=== PATIENT | male | born 2000 | race Caucasian/White ===

== ENCOUNTER 2024-09-01 14:10 | Emergency (ER) | payer OTHER, SELFPAY ==
--- NOTE | ~2024-09-01 | CT_ITS ---
CT of the Abdomen and Pelvis: Indication: Diarrhea Technique: 2.5 mm axial scans were obtained through the abdomen and pelvis following intravenous adm inistration of 100 cc of Omnipaque 350. Dose reduction technique was used on this scan by utilizing a utomated exposure control and iterative reconstruction technique. The dose-length product (DLP) was 4 02.77 mGy-cm. Findings: Scans through the lung bases are unremarkable. The liver, spleen, pancreas, gallbladder, adrenals and kidneys are within normal limits. No evidence of aortic aneurysm. No lymphadenopathy. Questionable mild wall thickening of the distal sigmoid colon/rectum. No bowel obstruction or. No abs cess or free air. Images through the pelvis were performed. Urinary bladder unremarkable. No pelvic mass seen. No ascit es. Impression: Possible colitis of the distal sigmoid colon and rectum. Correlate clinically. Reviewed, dictated and finalized at [facility]. Impression: Possible colitis of the distal sigmoid colon and rectum. Correlate clinically.
[2024-09-01 15:09] VITALS: BP 128/85; PULSE 75; RESP 22; TEMP 36.4; O2SAT 98
[2024-09-01 17:03] VITALS: BP 141/88; PULSE 64; RESP 18; O2SAT 100
[2024-09-01 17:15] LABS: Hematocrit 46.6 % (42.0-52.0); Hemoglobin 15.3 g/dL (14.0-18.0); Immature Granulocyte Percent A 0.3 % (0-0.5); Lymphocytes Absolute Auto 2.41 K/mm3 (0.9-3.2); Mean Corpuscular HGB Conc 32.8 g/dl (32-36); Mean Corpuscular Hemoglobin 27.9 pg (26-34); Mean Corpuscular Volume 84.9 fl (80-100); Nucleated Red Blood Cells Absolute Auto 0.000 K/mm3 (0.0-0.012); Nucleated Red Blood Cells Perc 0.0 % (0.0-0.2); Platelet Count Result 241 k/mm3 (150-375); Red Blood Count 5.49 M/mm3 (4.6-6.20); White Blood Count 7.4 K/mm3 (4.5-10.0)
[2024-09-01 17:25] LABS: INR 0.9; Partial Thromboplastin Time 29.5 Seconds (22.3-36.8); Prothrombin Time 12.5 Seconds (11.1-14.7)
[2024-09-01 17:29] LABS: Alanine Aminotransferase 36 U/L (6-50); Albumin Level 4.5 g/dL (3.5-5.1); Alkaline Phosphatase 72 U/L (38-126); Anion Gap 7 mmol/L (4-12); Aspartate Amino Transferase 36 U/L (17-59); Bilirubin,Total 0.6 mg/dL (0.2-1.3); Blood Urea Nitrogen 18 mg/dL (9-20); Calcium 9.8 mg/dL (8.4-10.2); Carbon Dioxide 28 mmol/L (22-30); Chloride 104 mmol/L (98-107); Estimated CRCL calculation 105 ml/min; Estimated Glomerular Filt Rate > 60; Glucose 86 mg/dL (65-110); Potassium 4.1 mmol/L (3.4-5.0); Sodium 139 mmol/L (137-145); Total Protein 7.7 g/dL (6.3-8.2)
[2024-09-01] MEDS: SODIUM CHLORIDE 0.9% IV 1,000 ML 999 ML IV CONT ×2 (17:39→18:40)
--- OUTSIDE RECORDS SUMMARY | 2024-09-01 17:39 | XMS_ITS | Clinical Summary ---
Author Organization [facility] Address [address] [place] [address] Care Team Providers Care Communication Consultant Name Role Phone Duke Deluca MD Primary Care Provider + Source Comments [facility],non-owned Affiliates and Associated Physician Practices is amultiple site organization consisting of ambulatory clinics and hospital sitesin [place], [place], [place] and [place]. This disclosure is being madepursuant to the Care Everywhere program and may not contain all information available regarding this patient. Last updated 17.[facility] Allergies No known active allergies Medications * Be aware that medications may not be up to date on this document. Alwaysverify current medications with the patient. omeprazole (PRILOSEC) 20 MG capsule TAKE ONE CAPSULE DAILY BEFORE BREAKFAST 0 8 Active ondansetron (ZOFRAN) 4 MG tablet TAKE 1 TABLET EVERY 8 HOURS 0 8 Active omeprazole (PRILOSEC) 20 MG capsule Take 1 capsule by mouth 2 times daily,before breakfast and supper 60 capsule 3 8 Active Family History Medical History Relation Name Comments Other - Gastrointestinal Brother h/u ulcer requiring hospitalization Celiac Disease Neg Hx Crohn's Disease Neg Hx Ulcerative Colitis Neg Hx Relation Name Status Comments Brother Social History Tobacco Use Types Packs/Day Years Used Date Smoking Tobacco: Every Day Smokeless Tobacco: Never Comments:vape Sex and Gender Information Value Date Recorded Sex Assigned at Not on file Legal Sex Male 6:32 PM CDT Gender Identity Not on file Sexual Orientation Not on file Last Filed Vital Signs Vital Sign Reading Time Taken Comments Blood Pressure 116/70 09/16/2017 1:12 PM CDT Pulse - - Temperature - - Respiratory Rate - - Oxygen Saturation - - Inhaled Oxygen Concentration - - Weight 73.4 kg (161 lb 13.1 oz) 09/16/2017 1:12 PM CDT Height 177.4 cm (5' 9.84) 09/16/2017 1:12 PM CD T Body Mass Index 23.32 09/16/2017 1:12 PM CDT Plan of Treatment Health Maintenance Due Date Last Done Comments HIV SCREENING 09/04/2015 HPV VACCINE (1 - Male 3-dose series) 09/04/2015 MENINGOCOCCAL (Group B) VACC INE SHARED DECISION-MAKING (1 of 2 - Standard) 2016 HEPATITIS C SCREENING 08/30/2018 DTAP/TDAP/TD VACCINES (1 - Tdap) 09/04/2019 HEPATITIS B VACCINE (1 of 3 - 19+ 3-dose series) 09/04/2019 COVID-19 VACCINE (1 - 2023-2 5 season) 2023 DEPRESSION SCREENING 02/15/2024 INFLUENZA VACCINE (#1) 2024 ZOSTER VACCINE (1 of 2) 2050 HIB VACCINE Aged Out No longer eligi ble based on patient's age to complete this topic MENINGOCOCCAL GROUPS A/C/Y/W VACCINE Aged Out No longer eligible b ased on patient's age to complete this topic PNEUMOCOCCAL VACCINE Aged Out No long er eligible based on patient's age to complete this topic Insurance [employer] Care Teams Communication Consultant Relationship Specialty Start Date End Date Duke Deluca MD PCP - General Internal Medicine 07/29/17
--- OUTSIDE RECORDS SUMMARY | 2024-09-01 17:39 | XMS_ITS | Clinical Summary ---
Author Organization [facility] Address [address] [place] [address] Care Team Providers Care Assistant Field Hockey Coach Name Role Phone Roula Flowers MD Primary Care Provider [phone]- [phone] Allergies No known active allergies Medications fexofenadine (IMAN) 180 MG tabletIndicatio ns:Seasonal allergies TAKE 1 TABLET BY MOUTH EVERY DAY 90 tablet 3 05/17/19 25 Active famotidine (PEPCID) 20 MG tabletIndicatio ns:Irritable bowel syndrome, unspecified type,Abdominal pain, unspecified abdominal location Take 1 tablet (20 mg total) by mouth 2 (two) times daily. 60 tablet 1 08/31/19 25 Active Simethicone 80 MG TabIndications: Irritable bowel syndrome, unspecified type,Abdominal pain, unspecified abdominal location Take 80 mg by mouth 2 (two) times daily for 30 days. For bloated abd feeling 60 tablet 1 08/31/19 25 025 Active metroNIDAZOLE (FLAGYL) 500 MG tabletIndicatio ns:Irritable bowel syndrome, unspecified type,Abdominal pain, unspecified abdominal location Take 1 tablet (500 mg total) by mouth 3 (three) times daily for 7 days. 21 tablet 08/31/19 25 025 Active nortriptyline (PAMELOR) 25 MG capsuleIndicati ons:Abdominal cramps,Irritabl e bowel syndrome, unspecified type Take 1 capsule (25 mg total) by mouth nightly at bedtime. 30 capsule 07/17/20 25 Active omeprazole (PRILOSEC) 40 MG capsuleIndicati ons:Gastroesoph ageal reflux disease, unspecified whether esophagitis present TAKE 1 CAPSULE BY MOUTH EVERY DAY NEEDED FOR HEARTBURN 30 capsule 1 05/17/19 25 025 Discontinued dicyclomine (BENTYL) 20 MG tabletIndicatio ns:Abdominal cramps Take 1 tablet (20 mg total) by mouth 2 (two) times daily as needed. 60 tablet 07/18/19 25 025 nortriptyline (PAMELOR) 10 MG capsuleIndicati ons:Abdominal cramps Take 1 capsule (10 mg total) by mouth nightly at bedtime. 30 capsule 1 07/18/19 25 025 Discontinued(Do se adjustment) Active Problems Problem Noted Date Diagnosed Date Abdominal cramps 07/17/2024 Assessment & Plan (08/30/2024 8:29 AM CDT): Patient denies having any cramps at this time and does not take any nortriptyline lately Patient was given an option higher dose of nortriptyline might help, sent Orders: nortriptyline (PAMELOR) 25 MG capsule; Take 1 capsule (25 mg total) by mouth nightly at bedtime. Assessment & Plan (07/17/2024 4:14 PM CDT): Lot better than before but needs to use dicyclomine BID Added probiotics in diet Suspected the IBS symptoms-trial of nortriptyline to be taken at bedtime Hydrate well Orders: dicyclomine (BENTYL) 20 MG tablet; Take 1 tablet (20 mg total) by mouth 2 (two) times daily as needed. nortriptyline (PAMELOR) 10 MG capsule; Take 1 capsule (10 mg total) by mouth nightly at bedtime. Gastroesophageal reflux disease without esophagi tis 04/18/2024 Seasonal allergies 09/20/2016 Resolved Problems Problem Noted Date Diagnosed Date Resolved Date Labral tear of shoulder, right, sequela 11/29/2017 04/18/2024 Asthma ([facility]) 09/20/2016 04/18/2024 Wears contact lenses 025 Encounters Date Type Department Care Team Description 08/30/2024 7:40 AM CDT Office Visit [facility] Family & Internal [address] [phone] Roula Flowers MD Stomach Pains (Follow up GI issues not any better) 08/30/2024 Travel 07/17/2024 3:40 PM CDT Office Visit [facility] Family & Internal [facility] [address] [place] [phone] Roula Flowers MD Pain (2 week follow up abdominal cramps/ pain) 07/17/2024 Travel 07/03/2024 Results Follow-Up [facility] [address] [place] [address] Roula Flowers MD OCCULT BLOOD, FECES, HELICOBACTER PYLORI, STOOL, EIA 07/02/2024 3:58 PM CDT - 07/02/2024 11:59 PM CDT Hospital Encounter [facility] [address] [place] [phone] Roula Flowers MD Discharge Disposition: Home or Self Care (Routine Discharge) 07/02/2024 Orders Only [facility] [address] [place] [address] Roula Flowers MD 06/29/2024 Results Follow-Up [facility] Internal [address] [phone] Roula Flowers MD CBC W/DIFF AUTOMATED, COMPREHENSIVE METABOLIC PANEL 06/28/2024 4:33 PM CDT - 06/28/2024 11:59 PM CDT Hospital Encounter [facility] [address] [place] [address] Roula Flowers MD Discharge Disposition: Home or Self Care (Routine Discharge) 06/28/2024 2:50 PM CDT Laboratory Only [facility] Family & Internal [address] [address] Clau Longo, FERMENTER-BC 06/28/2024 1:40 PM CDT Office Visit [facility] Family & Internal Medicine [facility] [address] [place] [address] Roula Flowers MD Pain (Acute stomach pain and irregular BM after ABT for 2 months) 06/28/2024 Travel from Last 3 Months Immunizations Immunization Administration Dates Next Due Dtap (Generic) 09/08/2005, 2,03/10/2001,01/10/2001 ,2000 Hepatitis B (Generic: Adult) 09/08/2001,03/10/19 02,2000 Hib Vaccine, Prp-Omp 12/07/2001,03/10/2001,01/10,2000 MMR (Generic) 09/08/2005,12/07/2001 Meningococcal Vac A,C,Y,W-135 Sc 11/24/2017 Pneumococcal (Prevnar 7) 12/07/2001,03/10/2001,1 2000,2000 Polio Ipv (Generic) 09/08/2005,09/08/2001,2000,2000 Tdap (Generic) 09/20/2014,09/14/2011 Varicella Vaccine 09/14/2011,09/08/2001 Family History Medical History Relation Comments Ulcers Brother No Known Problems Father Cirrhosis Maternal Grandfather Kidney failure Maternal Grandfather anal cancer Maternal Grandmother anal cancer Maternal great-grandmother Diabetes Mother Breast Cancer Neg Hx Colon Cancer Neg Hx Prostate Cancer Neg Hx Relation Status Comments Brother Alive Father Alive Maternal Grandfather Maternal Grandmother Maternal great-grandmother Alive Mother Alive Social History Tobacco Use Types Packs/Day Years Used Date Smoking Tobacco: Former Cigarettes 1.5 9 Q uit: 06/19/2024 Pipe Smokeless Tobacco: Current Tobacco Cessation:Ready to Q uit: No; Counseling Given: Yes Comments:Vaped for 9 years, 200 hits a day Alcohol Use Standard Drinks/Week Comments Yes 33.3 (1 standard drink = 0.6 oz pure alcohol) AUDIT-C Answer Date Recorded Frequency of Alcohol Consumption Never 12/31/2018 Average Number of Drinks Not on file 019 Frequency of Binge Drinking Not on file 12/15 PHQ-2 Answer Date Recorded Patient Health Questionnaire-2 Score 0 04/18/2024 Sex and Gender Information Value Date Recorded Sex Assigned at Male 04/18/2024 3:55 PM CHICKEN STUFFER Legal Sex Male 6:42 PM CDT Gender Identity Male 04/18/2024 3:55 PM CHICKEN STUFFER Sexual Orientation Not on file Last Filed Vital Signs Vital Sign Reading Time Taken Comments Blood Pressure 132/87 08/30/2024 7:34 AM CDT Pulse 88 08/30/2024 7:34 AM CDT Temperature 36.2 C (97.1 F) 08/30/2024 7:34 AM CDT Respiratory Rate 18 08/30/2024 7:34 AM CDT Oxygen Saturation 98% 08/30/2024 7:34 AM CDT Inhaled Oxygen Concentration - - Weight 90.3 kg (199 lb) 08/30/2024 7:34 AM CDT Height 180.3 cm (5' 11) 08/30/2024 7:34 AM CDT Body Mass Index 27.75 08/30/2024 7:34 AM CDT Plan of Treatment Upcoming Encounters Date Type Department Care Team (Late st Contact Info) Description 09/06/2024 3:[address] [facility] [address] [place], [place] [phone] [place] [address] [phone] 10/11/2024 3:40 PM CDT Office Visit [facility] Family & Internal Medicine - [place] [address] [place] [address] [place] [address] [address] Health Maintenance Due Date Last Done Comments Annual Physical 09/04/2003 HPV Vaccines (1 - Male 3-dose series) 09/04/2015 Hepatitis C 2018 DTaP, Tdap and Td Vaccines (8 - Td or Tdap) 09/20/2024 09/20/2014, 09/14/2011, 09/08/2005, Additional history exists COVID-19 Vaccine (3 - season) 2025 09/27/2020, 09/06/2020 Postponed from 10/16/2023 (Patient Refused) Meningococcal B Vaccine (1 of 2 - Standard) 04/18/2025 Postponed from 2016 (Patient Refused) Hepatitis B Vaccines Completed 09/08/2001, 03/10/2001, 2000 Pneumococcal Vaccine: Pediatrics (0 to 5 Years) and At-Risk Patients (6 to 49 Years) Aged Out 12/07/2001, 03/10/2001, 01/10/2001, Additional history exists No longer eligible based on patient's age to complete this topic Meningococcal Vaccine Aged Out 11/24/2017 No nadia renee eligible based on patient's age to complete this topic PHQ-2 (Physician Jenner) Completed 04/18/2024 RSV Immunizations Under 20 Months Aged Out No longer eligible based on patient's age to complete this topic Procedures Procedure Name Priority Date/Time Associated Diagnosis Comments OCCULT BLOOD, FECES Routine 07/02/2024 3 :58 PM CDT Abdominal cramps Epigastric pain HELICOBACTER PYLORI, STOOL, EIA Routine 07/02/2024 3:58 PM CDT Abdominal cramps Epigastric pain COLLECTION VENOUS BLOOD VENIPUNCTURE Routine 06/28/2024 3:05 PM CDT Abdominal cramps Epigastric pain COMPREHENSIVE METABOLIC PANEL Routine 06/28/2024 3:03 PM CDT Abdominal cramps CBC W/DIFF AUTOMATED Routine 06/28/2024 3:03 PM CDT Abdominal cramps Epigastric pain from Last 3 Months Results * OCCULT BLOOD, FECES (07/02/2024 3:58 PM CDT) [facility] OCCULT BLOOD FECAL NEGATIVE NEGATIVE 07/02/2024 5:25 PM CDT [facility] STOOL SPECIMEN / Unknown 07/02/2024 3:58 PM CDT Roula Flowers MD BODY FLUIDS AND STOOLS ZO PENNY Final Result Performing Organization Address City/[facility]/ZIP Co de Phone Number [facility] [address] [place] [address], [place] [phone] * HELICOBACTER PYLORI, STOOL, EIA (07/02/2024 3:58 PM CDT) H. PYLORI AG (STOOL) Not Detected Not Detected 07/05/2024 9:24 PM CDT [employer] MAREN MOORE Comment: Antimicrobials, proton pump inhibitors, and bismuth preparations inhibit H. pylori and ingestion up to two weeks prior to testing may cause false negative results. If clinically indicated the test should be repeated on a new specimen obtained two weeks after discontinuing treatment. Test Performed by [employer] [facility], [address] [place] [address] Tavares Rodgers M.D., Ph.D., Director of Laboratories , [facility] [id number] STOOL SPECIMEN / Unknown 07/02/2024 3:58 PM CDT Roula Flowers MD MICROBIOLOGY - GENERAL ZO PENNY Final Result Performing Organization Address City/[facility]/ZIP Co de Phone Number [facility] [id number] [place], [place] , [place] [phone] * (ABNORMAL) COMPREHENSIVE METABOLIC PANEL (06/28/2024 3:03 PM CDT) GLUCOSE 69(L) 70 - 99 MG/DL 06/28/2024 4:52 PM CDT [facility] BUN 16 7 - 18 MG/DL 06/28/2024 4:52 PM CDT [facility] CREATININE S/P/B 1.05 0.7 - 1.3 MG/DL 06/28/2024 4:52 PM T [facility] SODIUM S/P/B 140 136 - 145 MMOL/L 06/28/2024 4:52 PM T [facility] POTASSIUM S/P/B 4.4 3.5 - 5.1 MMOL/L 06/28/2024 4:52 PM T [facility] CHLORIDE S/P/B 103 100 - 108 MMOL/L 06/28/2024 4:52 PM T [facility] CO2 30.5 21 - 32 MMOL/L 06/28/2024 4:52 PM T [facility] CALCIUM S/P/B 9.5 8.5 - 10.1 MG/DL 06/28/2024 4:52 PM T [facility] BILIRUBIN TOTAL S/P/B 0.8 0.2 - 1.2 MG/DL 06/28/2024 4:52 PM [facility] TOTAL PROTEIN S/P/B 7.0 6.4 - 8.2 G/DL 06/28/2024 4:52 PM [facility] ALBUMIN S/P/B 4.2 3.4 - 5.0 G/DL 06/28/2024 4:52 PM T [facility] AST 22 15 - 37 U/L 06/28/2024 4:52 PM [facility] ALT 40 16 - 60 U/L 06/28/2024 4:52 PM [facility] ALKALINE PHOSPHATASE S/P/B 102 50 - 136 U/L 06/28/2024 4:52 PM T [facility] ANION GAP 6.5 5 - 15 MMOL/L 06/28/2024 4:52 PM CDT [facility] BUN CREATININE RATIO 15.2 6 - 26 06/28/2024 4:52 PM CDT [facility] A/G RATIO 1.5 1.0 - 2.0 RATIO 06/28/2024 4:52 PM CDT [facility] GFR ESTIMATE >90 >90 ML/MIN/1.7 3 M2 06/28/2024 4:52 PM CDT [facility] Comment: NOTE: eGFR is not calculated for patients <18 years of age. This is an estimated GFR calculation using the new CKD EPI creatinine equation without race and so does not require a correction factor for race. This estimated GFR should not be used for calculating drug doses. 06/28/2024 3:03 PM CDT us Roula Flowers MD LABORATORY Final Resul t [facility] [address] [place] [address], * (ABNORMAL) CBC W/DIFF AUTOMATED (06/28/2024 3:03 PM CDT) WBC 7.44 4.4 - 11.0 x10'3/uL 06/28/2024 4:40 PM CDT [facility] RBC 5.27 4.50 - 5.90 x10'6/uL 06/28/2024 4:40 PM CDT [facility] HGB 15.1 14.0 - 17.5 G/DL 06/28/2024 4:40 PM CDT [facility] HCT 44.6 41.5 - 50.4 % 06/28/2024 4:40 PM CDT [facility] MCV 84.6 80.0 - 96.0 FL 06/28/2024 4:40 PM CDT [facility] MCH 28.7 26.5 - 31.4 PG 06/28/2024 4:40 PM CDT [facility] MCHC 33.9 31.9 - 34.8 G/DL 06/28/2024 4:40 PM T [facility] RDW 12.2(L) 12.3 - 14.3 % 06/28/2024 4:40 PM T [facility] PLT 229 151 - 353 x10'3/uL 06/28/2024 4:40 PM T [facility] MPV 9.3(L) 9.7 - 11.9 FL 06/28/2024 4:40 PM T [facility] RBC MORPHOLOGY NORMAL 06/28/2024 4:40 PM T [facility] PLT MORPH. NORMAL 06/28/2024 4:40 PM T [facility] WBC MORPHOLOGY NORMAL 06/28/2024 4:40 PM T [facility] LYMPHOCYTES % 32.1 15.8 - 45.0 % 06/28/2024 4:40 PM T [facility] NEUTROPHILS % 55.5 42.1 - 71.9 % 06/28/2024 4:40 PM T [facility] MONOCYTES % 8.2 5.7 - 12.5 % 06/28/2024 4:40 PM T [facility] EOSINOPHILS 3.4 0.0 - 5.6 % 06/28/2024 4:40 PM T [facility] BASOPHILS 0.5 0.0 - 1.3 % 06/28/2024 4:40 PM T [facility] ABS. NEUTROPHILS 4.13 1.40 - 6.00 x10'3/uL 06/28/2024 4:40 PM T [facility] IMMATURE GRANS % 0.3 0.0 - 0.5 % 06/28/2024 4:40 PM CDT [facility] ABS. LYMPHOCYTES 2.39 0.80 - 4.70 x10'3/uL 06/28/2024 4:40 PM CDT [facility] 06/28/2024 3:03 PM CDT Roula Flowers MD LABORATORY Final Resul t [facility] [address] [place] [address], [place] [phone] from Last [address] itembase [facility] Care Teams Assistant Field Hockey Coach Relationship Specialty [place] [address] [place] [address] PCP - General INTERNAL MEDICINE 08/22/24
--- OUTSIDE RECORDS SUMMARY | 2024-09-01 17:39 | XMS_ITS | Encounter Summary ---
Author Organization [facility] Address [address] [place] [address] Care Team Providers Care Court Registry Officer Name Role Phone Clau Longo Wolfgang [facility] Primary Care Provider + Roula Flowers MD Primary Care Provider [phone] Encounter Details Date Type Department Care Team (Latest Contact Info) Description 07/03/2024 Results Follow-Up [facility] [address] [place], [place] [phone] [place] [address] [address] [place], [place] [phone] OCCULT BLOOD, FECES, HELICOBACTER PYLORI, STOOL, EIA Social History Tobacco Use Types Packs/Day Years Used Date Smoking Tobacco: Never Smokeless Tobacco: Current Comments:Vaping couple hits an hour, menthol nicotine Alcohol Use Standard Drinks/Week Comments Yes 33.3 [...] Sex Assigned at Male 04/18/2024 3:55 PM ANALYTICAL SCIENCES DIRECTOR Legal Sex Male 6:42 PM CDT Gender Identity Male 04/18/2024 3:55 PM ANALYTICAL SCIENCES DIRECTOR Sexual Orientation Not on file documented as of this encounter Progress Notes * Roula Flowers MD - 07/06/2024 8:30 AM CDT Results reviewed. Lab results are overall within normal limits No blood in stool or H. pylori infection * Roula Flowers MD - 07/03/2024 8:17 AM CDT No blood in stool documented in this encounter Plan of Treatment Upcoming Encounters Date Type Department Care Team (Late st Contact Info) Description 09/06/2024 3:[address] [facility] [address] [place], [place] [phone] [place] [address] [address] 10/11/2024 3:40 PM CDT Office Visit [facility] Family & Internal Medicine - [place] [address] [place] [address] [place] [address] [phone] documented as of this encounter Visit Diagnoses Not on filedocumented in this encounter Additional Health Concerns Assessment Noted Time PHQ-9 Depression Total Score: 7 04/19/19 3:57 PM ANALYTICAL SCIENCES DIRECTOR documented as of this encounter Care Teams Court Registry Officer Relationship Specialty Start Date End Date Clau Longo, PSYCHOLOGIST EDUCATIONAL- [address] [facility], [address] [place] [phone] PCP - General Nurse Practitioner Family 03/28/2408/21 [place] [address] [facility] [place] [address] PCP - General INTERNAL MEDICINE 08/22/24 documented as of this encounter
[2024-09-01 17:41] VITALS: BP 102/72; PULSE 73; RESP 14; O2SAT 99
--- NOTE | 2024-09-01 18:01 | ED_ITS ---
HPI - General Adult General Chief complaint: GI Bleed Stated complaint: blood in stool Time Seen by Provider: 09/01/24 17:18 History of Present Illness HPI narrative: This is a 23-year-old male presenting with 3 months of diarrhea. Started out as watery and 4-5 times per day. However last 3 weeks she started to become mixed with blood. It is associated with some abdominal cramping and bloating. Patient says he has felt dizzy lightheaded occasionally when standing up. He denies fevers travel history or recent antibiotics. He is supposed to get a CT later this week and his primary care physician is going to refer him for an EGD and colonoscopy although he has not established with a GI doctor yet. Patient was treated with a course of Flagyl early in the course was diarrhea with no FX. Related Data Allergies Allergy/AdvReac Type Severity Reaction Status Date / Time No Known Allergies Allergy Verified 09/01/24 17:05 Exam 2 Narrative: APPEARANCE: No apparent distress. Head: atraumatic. EYES: EOMI, NOSE: Atraumatic NECK: Trachea midline RESPIRATORY: No increased rate of breathing CARDIOVASCULAR: RRR, ABDOMINAL: Non-distended soft nontender no guarding rebound Rectal exam: No external hemorrhoids or fissures, no stool or blood in the rectal vault MUSCULOSKELETAl: No obvious deformities NEURO: Alert. Moving 4/4 extremities SKIN:: Warm, dry. Normal color PSYCHIATRIC: Normal affect Course Vital Signs Vital signs: Vital Signs Temperature 97.6 F 09/01/24 15:09 Pulse Rate 75 09/01/24 15:09 Respiratory Rate 22 H 09/01/24 15:09 Blood Pressure 128/85 09/01/24 15:09 Pulse Oximetry 98 09/01/24 15:09 Oxygen Delivery Room Air 09/01/24 15:09 Temperature 97.6 F 09/01/24 15:09 Pulse Rate 83 09/01/24 18:43 Respiratory Rate 18 09/01/24 18:43 Blood Pressure 134/76 09/01/24 18:43 Pulse Oximetry 100 09/01/24 18:43 Oxygen Delivery Room Air 09/01/24 17:03 Medical Decision Making [facility] Narrative Medical decision making narrative: -Course: 23-year-old male presenting ED with a chief complaint of diarrhea. Over last 3 weeks has become bloody. Hemoglobin stable at 15.3. Suspect his dizziness is from dehydration. Given 2 L of normal saline. CT abdomen pelvis ordered to evaluate signs of inflammatory bowel disease. CT abdomen pelvis showed inflammation of the sigmoid colon and rectum. Patient will be discharged to follow-up with GI. Given return precautions. -DDX includes but is not limited to: Ulcer colitis, Crohn's disease, infectious colitis, Vital Signs Vital Signs: Vital Signs Temperature 97.6 F 09/01/24 15:09 Pulse Rate 75 09/01/24 15:09 Respiratory Rate 22 H 09/01/24 15:09 Blood Pressure 128/85 09/01/24 15:09 Pulse Oximetry 98 09/01/24 15:09 Oxygen Delivery Room Air 09/01/24 15:09 Temperature 97.6 F 09/01/24 15:09 Pulse Rate 83 09/01/24 18:43 Respiratory Rate 18 09/01/24 18:43 Blood Pressure 134/76 09/01/24 18:43 Pulse Oximetry 100 09/01/24 18:43 Oxygen Delivery Room Air 09/01/24 17:03 Lab Data 09/01/24 17:10 09/01/24 17:10 Labs: Lab Results 09/01/24 Range/Units 17:10 WBC 7.4 (4.5-10.0) K/mm3 RBC 5.49 (4.6-6.20) M/mm3 Hgb 15.3 (14.0-18.0) g/dL Hct 46.6 (42.0-52.0) % MCV 84.9 (80-100) fl MCH 27.9 (26-34) pg MCHC 32.8 (32-36) g/dl RDW 12.3 (11.5-14.5) % Plt Count 241 (150-375) k/mm3 MPV 8.9 (7.4-10.4) fl Immature Gran % (Auto) 0.3 (0-0.5) % Neut % (Auto) 55.1 (45.5-73.1) % Lymph % (Auto) 32.7 (18.3-44.2) % Jerauld % (Auto) 7.7 (2.6-8.5) % Eos % (Auto) 3.7 (0-4.4) % Baso % (Auto) 0.5 (0.2-1.2) % Lymph # (Auto) 2.41 (0.9-3.2) K/mm3 Jerauld # (Auto) 0.6 (0.1-0.6) K/mm3 Eos # (Auto) 0.3 (0-0.3) K/mm3 Baso # (Auto) 0.0 (0.0-0.1) K/mm3 Abs Immat Gran (auto) 0.02 (0.00-0.031) K/mm3 Absolute Neuts (auto) 4.1 (1.3-6.7) K/mm3 Absolute Nucleated RBC 0.000 (0.0-0.012) K/mm3 Nucleated RBC % 0.0 (0.0-0.2) % PT 12.5 (11.1-14.7) Seconds INR 0.9 APTT 29.5 (22.3-36.8) Seconds Sodium 139 (137-145) mmol/L Potassium 4.1 (3.4-5.0) mmol/L Chloride 104 (98-107) mmol/L Carbon Dioxide 28 (22-30) mmol/L Anion Gap 7 (4-12) mmol/L BUN 18 (9-20) mg/dL Creatinine 1.00 (0.7-1.3) mg/dL Estim Creat Clear Calc 105 ml/min Estimated GFR > 60 (59 - ) Glucose 86 (65-110) mg/dL Calcium 9.8 (8.4-10.2) mg/dL Total Bilirubin 0.6 (0.2-1.3) mg/dL AST 36 (17-59) U/L ALT 36 (6-50) U/L Alkaline Phosphatase 72 (38-126) U/L Total Protein 7.7 (6.3-8.2) g/dL Albumin 4.5 (3.5-5.1) g/dL Blood Type O Positive Antibody Screen Negative Discharge Plan Discharge Clinical Impression: Colitis Patient Disposition: Home Condition: Stable Instructions: Antibiotic Form, Chronic Diarrhea (DC) Additional Instructions: You were seen in the emergency department for bloody diarrhea. Your hemoglobin was 15.3 which is normal. Please make sure you are drinking plenty of fluids. Please follow-up with the GI physician listed below for further management. If you develop severe abdominal pain, inability to tolerate liquids or worsening bloody diarrhea he can return to the ED at any time for re-evaluation. Patient Language: Bangladeshi Follow-up/Referrals: PHYSICIAN,CLOTH PRINTING BACK TENDER [Primary Care Provider] - Jalil Rosas MD [Physician] - 1 Week (bloody diarrhea )
[2024-09-01 18:43] VITALS: BP 134/76; PULSE 83; RESP 18; O2SAT 100
== END 2024-09-01 19:28 | disposition home or self-care (01) ==
PROVIDERS: Emergency Medicine; Emergency Provider Emergency Medicine
DX: K52.9 Noninfective gastroenteritis and colitis, unspecified (principal)
CPT/HCPCS: 36415; 74177; 80053; 85025; 85610; 85730; 86850; 86900; 86901; 96360; 96361; 99284; J7030; Q9967

== ENCOUNTER 2024-10-01 01:17 | Day surgery (SDC) | payer OTHER, SELFPAY ==
[2024-09-26 13:05] VITALS: BMI 28.1
--- OUTSIDE RECORDS SUMMARY | 2024-10-01 01:19 | XMS_ITS | Clinical Summary ---
Author Organization [facility] Address [address] [place] [address] Care Team Providers Care Manager Emergency Name Role Phone Duke Deluca MD Primary Care Provider + Source Comments [facility],non-owned Affiliates and Associated Physician Practices is amultiple site organization consisting of ambulatory clinics and hospital sitesin [place], [place], [place] and [place]. This disclosure is being madepursuant to the Care Everywhere program and may not contain all information available regarding this patient. Last updated 17.[facility] Allergies No known active allergies Medications * [...] VACCINE (1 - Male 3-dose series) 09/04/2015 HEPATITIS C SCREENING 08/30/2018 DTAP/TDAP/TD VACCINES (1 - Tdap) 09/04/2019 HEPATITIS B VACCINE (1 of 3 - 19+ 3-dose series) 09/04/2019 COVID-19 VACCINE (1 - 2023-2 5 season) 2023 DEPRESSION SCREENING 02/15/2024 INFLUENZA VACCINE (#1) 2024 ZOSTER VACCINE (1 of 2) 2050 HIB VACCINE Aged Out No longer eligi ble based on patient's age to complete this topic MENINGOCOCCAL (Group B) VACC INE SHARED DECISION-MAKING Aged Out No longer eligibl e based on patient's age to complete this topic MENINGOCOCCAL GROUPS A/C/Y/W VACCINE Aged Out No longer eligible b ased on patient's age to complete this topic PNEUMOCOCCAL VACCINE Aged Out No long er eligible based on patient's age to complete this topic Insurance [employer] [facility] [address] [place] [address] [employer] [facility] Address: [facility] [address] [place] [address] Care Teams Manager Emergency Relationship Specialty Start Date End Date Duke Deluca MD PCP - General Internal Medicine 07/29/17
--- OUTSIDE RECORDS SUMMARY | 2024-10-01 01:19 | XMS_ITS | Clinical Summary ---
Author Organization [facility] Address [address] [place] [address] Care Team Providers Care Industrial Gas Fitter Helper Name Role Phone Roula Flowers MD Primary Care Provider [phone] Allergies No known active allergies Medications fexofenadine (IMAN) 180 MG tabletIndication s:Seasonal allergies TAKE 1 TABLET BY MOUTH EVERY DAY 90 tablet 3 5 Active famotidine (PEPCID) 20 MG tabletIndication s:Irritable bowel syndrome, unspecified type,Abdominal pain, unspecified abdominal location Take 1 tablet (20 mg total) by mouth 2 (two) times daily. 60 tablet 1 5 Active nortriptyline (PAMELOR) 25 MG capsuleIndicatio ns:Abdominal cramps,Irritable bowel syndrome, unspecified type Take 1 capsule (25 mg total) by mouth nightly at bedtime. 30 capsule 5 Active Simethicone 80 MG TabIndications:I rritable bowel syndrome, unspecified type,Abdominal pain, unspecified abdominal location Take 80 mg by mouth 2 (two) times daily for 30 days. For bloated abd feeling 60 tablet 1 5 09/30/19 25 metroNIDAZOLE (FLAGYL) 500 MG tabletIndication s:Irritable bowel syndrome, unspecified type,Abdominal pain, unspecified abdominal location Take 1 tablet (500 mg total) by mouth 3 (three) times daily for 7 days. 21 tablet 5 09/07/19 25 Active Problems Problem Noted Date Diagnosed Date [...] of shoulder, right, sequela 11/29/2017 04/18/2024 Asthma ([facility]) 09/20/2016 04/18/2024 Wears contact lenses 025 Encounters Date Type Department Care Team Description 09/25/2024 3:56 PM CDT - 09/25/2024 11:59 PM CDT Hospital Encounter [facility] [address] [place] [address] Melanie Cortez NP Discharge Disposition: Home or Self Care (Routine Discharge) 09/24/2024 2:55 PM CDT - 09/24/2024 11:59 PM CDT Hospital Encounter [facility] [address] [place] [address] Melanie Cortez NP Discharge Disposition: Home or Self Care (Routine Discharge) 09/24/2024 Orders Only [facility] [address] [place] [address] Melanie Cortez NP 09/24/2024 Travel 08/30/2024 7:40 AM CDT Office Visit [facility] Family & Internal [facility] [address] [place] [address] Roula Flowers MD Stomach Pains (Follow up GI issues not any better) 08/30/2024 Travel 07/17/2024 3:40 PM CDT Office Visit [facility] & Internal [facility] [address] [place] [phone] Roula Flowers MD Pain (2 week follow up abdominal cramps/ pain) 07/17/2024 Travel 07/03/2024 Results Follow-Up [facility] [address] [place] [address] Roula Flowers MD OCCULT BLOOD, FECES, HELICOBACTER PYLORI, STOOL, EIA 07/02/2024 3:58 PM CDT - 07/02/2024 11:59 PM CDT Hospital Encounter [facility] [address] [place] [address] Roula Flowers MD Discharge Disposition: Home or Self Care (Routine Discharge) 07/02/2024 Orders Only [facility] [address] [place] [address] Roula Flowers MD from Last 3 Months Immunizations Immunization Administration [...] Sex Assigned at Male 04/18/2024 3:55 PM COMMERCIAL INSURANCE UNDERWRITER Legal Sex Male 6:42 PM CDT Gender Identity Male 04/18/2024 3:55 PM COMMERCIAL INSURANCE UNDERWRITER Sexual Orientation Not on file Last Filed [...] Care Team (Late st Contact Info) Description 10/11/2024 3:40 PM CDT Office Visit [facility] Family & Internal Medicine [facility] [address] [place] [address] [place] [address] [place] [address] Health Maintenance Due Date Last Done Comments Annual Physical 09/04/2003 HPV Vaccines (1 - Male 3-dose series) 09/04/2015 Hepatitis C 2018 DTaP, Tdap and Td Vaccines (8 - Td or Tdap) 09/20/2024 09/20/2014, 09/14/2011, 09/08/2005, Additional history exists COVID-19 Vaccine () 04/18/2025 09/27/2020, 09/06/2020 Postponed from 10/16/2023 (Patient Refused) Hepatitis B Vaccines Completed 09/08/2001, 03/10/2001, 2000 Pneumococcal Vaccine: Pediatrics (0 to 5 Years) and At-Risk Patients (6 to 49 Years) Aged Out 12/07/2001, 03/10/2001, 01/10/2001, Additional history exists No longer eligible based on patient's age to complete this topic Meningococcal Vaccine Aged Out 11/24/2017 No nadia renee eligible based on patient's age to complete this topic PHQ-2 (Physician [place]) Completed 04/18/2024 Meningococcal B Vaccine Aged Out No l onger eligible based on patient's age to complete this topic RSV Immunizations Under 20 Months Aged Out No longer eligible based on patient's age to complete this topic Procedures Procedure Name Priority Date/Time Associated Diagnosis Comments HC OVA & PARASITE W/STAIN-90 Routine 09/25/2024 3:40 PM CDT Diarrhea, unspecified Abnormal findings on diagnostic imaging of other specified body structures CLOSTRIDIUM DIFFICILE Routine 09/25/2024 3:40 PM CDT Diarrhea, unspecified Abnormal findings on diagnostic imaging of other specified body structures GI PANEL PCR - STOOL Routine 09/25/2024 3:40 PM CDT Diarrhea, unspecified Abnormal findings on diagnostic imaging of other specified body structures MISCELLANEOUS LAB TEST Routine 3:40 PM CDT Diarrhea, unspecified Abnormal findings on diagnostic imaging of other specified body structures CELIAC DISEASE COMP PANEL Routine 09/24/2024 3:03 PM CDT Diarrhea, unspecified Abnormal findings on diagnostic imaging of other specified body structures SED RATE, ERYTHROCYTE (ESR) Routine 09/24/2024 3:03 PM CDT Diarrhea, unspecified Abnormal findings on diagnostic imaging of other specified body structures C-REACTIVE PROTEIN Routine 09/24/2024 3: 03 PM CDT Diarrhea, unspecified Abnormal findings on diagnostic imaging of other specified body structures OCCULT BLOOD, FECES Routine 07/02/2024 3 :58 PM CDT Abdominal cramps Epigastric pain HELICOBACTER PYLORI, STOOL, EIA Routine 07/02/2024 3:58 PM CDT Abdominal cramps Epigastric pain from Last 3 Months Results * GI PANEL PCR - STOOL (09/25/2024 3:40 PM CDT) CAMPYLOBACTER PCR (STOOL) NOT DETECTED NOT DETECTED 09/25/2024 9:10 PM CDT [facility] PLESIOMONAS SHIGELLOIDES PCR (STOOL) NOT DETECTED NOT DETECTED 09/25/2024 9:10 PM CDT [facility] SALMONELLA PCR (STOOL) NOT DETECTED NOT DETECTED 09/25/2024 9:10 PM CDT [facility] VIBRIO PCR (STOOL) NOT DETECTED NOT DETECTED 09/25/2024 9:10 PM CDT [facility] VIBRIO CHOLERAE PCR (STOOL) NOT DETECTED NOT DETECTED 09/25/2024 9:10 PM CDT [facility] YERSINIA ENTEROCOLITICA PCR (STOOL) NOT DETECTED NOT DETECTED 09/25/2024 9:10 PM CDT [facility] ENTEROAGGREGATIVE ECOLI PCR (STOOL) NOT DETECTED NOT DETECTED 09/25/2024 9:10 PM CDT [facility] ENTEROPATHOGENIC ECOLI PCR (STOOL) NOT DETECTED NOT DETECTED 09/25/2024 9:10 PM CDT [facility] ENTEROTOXIGENIC ECOLI PCR (STOOL) NOT DETECTED NOT DETECTED 09/25/2024 9:10 PM CDT [facility] SHIGA LIKE TOXIN ECOLI PCR (STOOL) NOT DETECTED NOT DETECTED 09/25/2024 9:10 PM CDT [facility] SHIG/ENTEROINVASIVE ECOLI PCR (STOOL) NOT DETECTED NOT DETECTED 09/25/2024 9:10 PM CDT [facility] CRYPTOSPORIDIUM PCR (STOOL) NOT DETECTED NOT DETECTED 09/25/2024 9:10 PM CDT [facility] CYCLOSPORA CAYETANENSIS PCR (STOOL) NOT DETECTED NOT DETECTED 09/25/2024 9:10 PM CDT [facility] ENTAMOEBA HISTOLYTICA PCR (STOOL) NOT DETECTED NOT DETECTED 09/25/2024 9:10 PM CDT [facility] GIARDIA LAMBLIA PCR (STOOL) NOT DETECTED NOT DETECTED 09/25/2024 9:10 PM CDT [facility] ADENOVIRUS F40/41 PCR (STOOL) NOT DETECTED NOT DETECTED 09/25/2024 9:10 PM CDT [facility] ASTROVIRUS PCR (STOOL) NOT DETECTED NOT DETECTED 09/25/2024 9:10 PM CDT [facility] NOROVIRUS GI/GII PCR (STOOL) NOT DETECTED NOT DETECTED 09/25/2024 9:10 PM CDT [facility] ROTAVIRUS A PCR (STOOL) NOT DETECTED NOT DETECTED 09/25/2024 9:10 PM CDT [facility] SAPOVIRUS PCR (STOOL) NOT DETECTED NOT DETECTED 09/25/2024 9:10 PM CDT [facility] STOOL SPECIMEN / Unknown 09/25/2024 3:40 PM CDT Melanie Cortez POWER AND RECOVERY SUPERVISOR MICROBIOLOGY - GENERAL ORDERA BLES Final Result [facility] [address] [place] [address], [place] [phone] * CLOSTRIDIUM DIFFICILE (09/25/2024 3:40 PM CDT) GD ANTIGEN NEGATIVE NEGATIVE 09/25/2024 4:40 PM CDT [facility] C DIFFICILE TOXIN A&B (STOOL) NEGATIVE NEGATIVE 09/25/2024 4:40 PM CDT [facility] COMMENT GDH NEGATIVE/TOXI N A & B NEGATIVE: NEGATIVE FOR TOXIGENIC C. DIFFICILE. GDH NEGATIVE/TOXI N A & B NEGATIVE: NEGATIVE FOR TOXIGENIC C. 09/25/2024 4:40 PM CDT [facility] STOOL SPECIMEN / Unknown 09/25/2024 3:40 PM CDT Melanie Cortez POWER AND RECOVERY SUPERVISOR BODY FLUIDS AND STOOLS ORDERA BLES Final Result [facility] [address] [place] [address], [place] [phone] * O&P CONC&SMEAR TO REF LAB (09/25/2024 3:40 PM CDT) SPECIMEN SOURCE STOOL 3:56 PM CDT [facility] O & P EXAMINATION (STOOL) REPORT 09/29/2024 9:14 PM CDT [employer] HERNANDO CORREA Comment: Ova and Parasites, Concentrate and Permanent Smear Examination for Ova and Parasites SOURCE : STOOL Result/Comment: NO OVA AND PARASITES SEEN. Reference Range: No Ova and Parasites seen Routine Ova and Parasite Exam may not detect some parasites that occasionally cause diarrheal illness. Cryptosporidium Antigen and/or Cyclospora and Isospora Exam may be ordered to detect these parasites. One negative sample does not necessarily rule out the presence of a parasitic infection. Assay performed by wet mount after concentration. Parasite Exam, Trichrome Stain SOURCE : STOOL Result/Comment: NO OVA AND PARASITES SEEN. Routine Ova and Parasite Exam may not detect some parasites that occasionally cause diarrheal illness. Cryptosporidium Antigen and/or Cyclospora and Isospora Exam may be ordered to detect these parasites. One negative sample does not necessarily rule out the presence of a parasitic infection. For additional information, please refer to https://education.Eventyard/faq/FNI545 (This link is being provided for informational/ educational purposes only.) Test Performed by [facility] [employer] [facility] [place], [id number] [place] [address] Tavares Rodgers M.D., Ph.D., Director of Laboratories , [facility] [id number] STOOL SPECIMEN / Unknown 09/25/2024 3:40 PM CDT Melanie Cortez NP MICROBIOLOGY - GENERAL ORDERA BLES Final Result [employer] [facility] [address] [place], [place] , [place] [phone] [facility] [address] [place] [address], [place] [phone] * CELIAC DISEASE COMP PANEL (09/24/2024 3:03 PM CDT) INTERPRETATION REPORT 09/28/2024 4:37 AM CDT [employer] MAREN MOORE Comment: No serological evidence for celiac disease is present. tTG may normalize in individuals with celiac disease who maintain a gluten free diet. If high suspicion of celiac disease, consider HLA DQ2 and DQ8 testing to rule out celiac disease. TISSUE TRANSGLUTAMINASE IGA AB <1.0 <15.0 U/mL 09/28/2024 4:37 AM CDT [employer] BURROWSKALEY MOORE Comment: Value Interpretation <15.0 Antibody not detected > or = 15.0 Antibody detected IGA 99 47 - 310 mg/dL 09/28/2024 4:37 AM CDT [employer] ALYSONKALEY MOORE Comment: Test Performed by [employer], [employer] [facility], [address] [place], [place] Tavares Rodgers M.D., Ph.D., Director of Laboratories , [facility] [id number] 09/24/2024 3:03 PM CDT Melanie Cortez NP LABORATORY Final Result [employer] [facility] [address] [place] [address], [place] [phone] * SED RATE, ERYTHROCYTE (ESR) (09/24/2024 3:03 PM CDT) Pathologist [facility] ESR 4 0 - 15 MM/HR 09/24/2024 3:34 PM CDT [facility] 09/24/2024 3:03 PM CDT Melanie Cortez NP LABORATORY Final Result [facility] [address] [place] [address], [place] [phone] * C-REACTIVE PROTEIN (09/24/2024 3:03 PM CDT) C-REACTIVE PROTEIN <0.29 <0.29 mg/dL 09/24/2024 7:32 PM CDT [facility] 09/24/2024 3:03 PM CDT Melanie Cortez NP LABORATORY Final Result Performing Organization Address City/[facility]/ZIP Co de Phone Number [facility] [address] [place] [address], [place] [phone] * OCCULT BLOOD, FECES (07/02/2024 3:58 PM CDT) OCCULT BLOOD FECAL NEGATIVE NEGATIVE 07/02/2024 5:25 PM CDT [facility] STOOL SPECIMEN / Unknown 07/02/2024 3:58 PM CDT Roula Flowers MD BODY FLUIDS AND STOOLS [facility] Final Result Performing Organization Address City/[facility]/ZIP Co de Phone Number [facility] [address] [place] [address], [place] [phone] * HELICOBACTER PYLORI, STOOL, EIA (07/02/2024 3:58 PM CDT) Pathologist [facility] H. PYLORI AG (STOOL) Not Detected Not Detected 07/05/2024 9:24 PM CDT [employer] MAREN MOORE Comment: Antimicrobials, proton pump inhibitors, and bismuth preparations inhibit H. pylori and ingestion up to two weeks prior to testing may cause false negative results. If clinically indicated the test should be repeated on a new specimen obtained two weeks after discontinuing treatment. Test Performed by Dominic Harrison, [employer] [facility], [address] [place] [address] Tavares Rodgers M.D., Ph.D., Director of Laboratories , [place] [id number] STOOL SPECIMEN / Unknown 07/02/2024 3:58 PM CDT Roula Flowers MD MICROBIOLOGY - GENERAL ZO PENNY Final Result Performing Organization Address City/State/[facility] Co de Phone Number LATONYA ALVAREZ [facility] [address] [place] [address], [place] [phone] from Last 3 Months Insurance [facility] Photos I Like OPEN ACCESS [facility] Care Teams Industrial Gas Fitter Helper Relationship Specialty [place] [address] [place] [address] PCP - General INTERNAL MEDICINE 08/22/24
[2024-10-01 07:44] VITALS: BP 125/96; PULSE 87; RESP 16; TEMP 36.4; O2SAT 100
[2024-10-01] MEDS: LACTATED RINGERS 1,000 ML 30 ML IV CONT (07:52)
--- NOTE | 2024-10-01 08:05 | P.PNAN_ITS ---
Anes - Initial Pre Proc Eval Procedure: Operation Date: 10/01/24 09:00 Proposed Procedures p Diagnostic Colonoscopy - Rakesh Lima MD Date/Time: 10/01/24 08:05 Surgeon: Rakesh Lima MD Pre Op Diagnosis: Abnormal findings on diagnostic imaging of other s Patient Data Age: 24 Gender: M Height: 1.78 m Weight: 84.4 kg Last Vital Signs Temp 36.4 C 10/01/24 07:44 Pulse 87 10/01/24 07:44 Resp 16 10/01/24 07:44 BP 125/96 H 10/01/24 07:44 Pulse Ox 100 10/01/24 07:44 O2 Del Method Room Air 10/01/24 07:44 Allergies Allergy/AdvReac Type Severity Reaction Status Date / Time No Known Allergies Allergy Verified 10/01/24 07:43 Home Medications ?Medication ?Instructions ?Recorded ?Confirmed ?Type dicyclomine 20 mg tablet 20 mg PO DAILY 09/24/24 10/01/24 History Patient hx anesthesia problems: none Family hx anesthesia problems: none Results Review: All pre-operative results and documents have been reviewed as part of the pre- operative evaluation. FOR[facility] Past Medical History Medical History Abdominal pain Blood in stool Abnormal CT scan Diarrhea Social History Social History Smoking status: Former smoker Tobacco type: e-cigarettes/vaping Alcohol intake: current Alcohol use details: Social Substance use: never Substance use type: does not use Spiritual care concerns: No Anes - Eval Final PreProcedure Day of Procedure 10/01/24 08:05 Patient weight: normal Heart: regular rate and rhythm Lungs: clear to auscultation Airway: Mallampati scale class 1 Neurological: alert and oriented Last oral intake: >/= 8 hours ASA classification: I Emergent: no Anesthetic plan: proceed Anesthesia type and monitoring: general GIVS and standard monitoring Results Review: All pre-operative results and documents have been reviewed as part of the pre- operative evaluation. Informed Consent: The patient's anesthetic plan and its attendant risks and benefits were discussed with the patient/family/POA. Questions were solicited and answers provided to the satisfaction of the patient/family/POA.
--- NOTE | 2024-10-01 08:37 | WPDHPUPDATE1 ---
History and Physical Update Update Date/Time: 10/01/24 08:37 History and Physical has been reviewed, including an updated exam of the patient. There are NO changes in the patient's condition. Risks, benefits, and alternatives have been discussed and questions answered. Patient agrees to proceed with procedure.
--- NOTE | 2024-10-01 08:47 | S_PTH ---
PATIENT: Roberto Iniguez LOC: [facility]#:[id number] AGE/SX: 24/M ROOM: RE10/01/[address]: Rakesh Lima MD : 2000 BED: DIS: 10/01/2024 SPEC #: [id number] RECD: 10/01/24 10:28 STATUS: DONTE REJatin #: [id number] ANGEL: 10/01/24 08:[address]: Rakesh Lima DEPT: [facility] Surgical RECD BY: Chary Barber ENTERED: 10/01/24 10:29 SP TYPE: Surgical OTHR DR: CUSTOMER PROFESSIONAL PHYSICIAN Tissues: A - Colon Biopsy B - Colon Biopsy Procedures: Hematoxylin and Eosin Stain Gross and Microscopic Level 4
[2024-10-01 08:52] VITALS: BP 107/70; PULSE 85; RESP 24; O2SAT 97
[2024-10-01 09:02] VITALS: BP 117/79; PULSE 71; RESP 23; O2SAT 97
[2024-10-01 09:12] VITALS: BP 118/77; PULSE 75; RESP 22; O2SAT 100
== END 2024-10-01 09:26 | disposition home or self-care (01) ==
PROVIDERS: Referring Provider Nurse Practitioner Family; Visit Provider Internal Medicine Gastroenterology
PROC: 0DJD8ZZ Inspection of Lower Intestinal Tract, Via Natural or Artificial Opening Endoscopic (ICD-10-PCS; CPT 45378; principal; 2024-10-01 09:00)
DX: R93.89 Abnormal findings on diagnostic imaging of other specified body structures (principal); K51.814 Other ulcerative colitis with abscess; Z87.891 Personal history of nicotine dependence
CPT/HCPCS: 45380; 88305; J2704; J7120